=== PATIENT | female | born 1990 | race Two or more races ===

== ENCOUNTER 2023-09-23 22:55 | Emergency (ER) | payer OTHER ==
[~2023-09-23] VITALS: Ht 165.1 cm; Wt 81.2 kg
[2023-09-24] MEDS ORDERED: KETOROLAC TROMETHAMINE 10 MG TABLET PO STA (00:25)
[2023-09-24] MEDS ORDERED: CEFTRIAXONE SODIUM 1,000 MG VIAL IM STA (00:25)
[2023-09-24] MEDS ORDERED: NEOMYCIN/POLYMYXIN B/HYDROCORT 20 DR/ML BOTTLE OT STA (00:26)
[2023-09-24] MEDS ORDERED: KETO10TA2 PO (00:28)
[2023-09-24] MEDS ORDERED: CEPHALEXIN500 MG PO (00:28)
[2023-09-24] MEDS ORDERED: CEFTRIAXONE SODIUM 1,000 MG VIAL ONE (00:30)
[2023-09-24] MEDS ORDERED: KETOROLAC TROMETHAMINE 10 MG TABLET PO ONE (00:30)
[2023-09-24] MEDS ORDERED: CORTISPORIN EAR10 M1 OTIC (00:33)
== END 2023-09-24 01:21 ==
LOC: ER 22:56
DX: H60.91 Unspecified otitis externa, right ear (principal)